=== PATIENT | female | born 1955 | race Caucasian/White ===

== ENCOUNTER → 2018-07-28 | Outpatient (CLI) | payer BC | LOC: BMCIMAGING 08:26 | PROVIDERS: ATTEND Family Medicine | DX: S52.571A Other intraarticular fracture of lower end of right radius, initial encounter for closed fracture (principal); S52.611A Displaced fracture of right ulna styloid process, initial encounter for closed fracture ==

== ENCOUNTER → 2018-08-04 | Outpatient (CLI) | payer BC | LOC: BMCIMAGING 16:11 | PROVIDERS: ATTEND Orthopaedic Surgery Hand Surgery | DX: S52.501D Unspecified fracture of the lower end of right radius, subsequent encounter for closed fracture with routine healing (principal) ==

== ENCOUNTER → 2018-08-17 | Outpatient (CLI) | payer BC | LOC: BMCIMAGING 13:46 | PROVIDERS: ATTEND Orthopaedic Surgery Hand Surgery | DX: S52.501D Unspecified fracture of the lower end of right radius, subsequent encounter for closed fracture with routine healing (principal) ==

== ENCOUNTER → 2018-09-08 | Outpatient (CLI) | payer BC | LOC: BMCIMAGING 14:57 | PROVIDERS: ATTEND Orthopaedic Surgery Hand Surgery | DX: S52.501D Unspecified fracture of the lower end of right radius, subsequent encounter for closed fracture with routine healing (principal) ==